=== PATIENT | male | born 1955 | race Caucasian/White ===

== ENCOUNTER → 2018-02-11 | Outpatient (CLI) | payer BC ==
[~2018-02-11] MED LIST: BUSPIRONE HCL5 MG PO; DOXYCYCLINE HY100 MG PO; FLOMAX0.4 MG PO; LEVAQUIN500 MG PO; SERTRALINE HCL50 MG PO
--- NOTE | 2018-02-11 13:47 | Diagnostic Imaging Report ---
PROCEDURE:US RETROPERITONEAL ( KIDNEY ). COMPARISON:Renal ultrasound 06/02/2017, CT abdomen and pelvis 09/14/2016 INDICATIONS:Cyst of Kidney TECHNIQUE: Caraballo-scale and color sonographic images of the bilateral kidneys and bladder where obtained in transverse and longitudinal planes. FINDINGS: RIGHT KIDNEY: 11.7 x 6.6 x 5.7 cm, cortex 1.9 cm Cysts: None Solid masses: None Stones: None Hydronephrosis: Mild, stable to slightly decreased from prior ultrasound. Echogenicity: Normal LEFT KIDNEY: 12.5 x 6.1 x 6.8 cm, cortex 1.9 cm Cysts: Inferior pole 2.5 x 1.9 x 2.7 cm anechoic structure (previously 1.6 x 1.5 x 2 cm). Inferior pole 2.7 x 2 x 3.3 cm anechoic structure with septation (previously 3.3 x 4 x 3.3 cm). Solid masses: None Stones: None Hydronephrosis: Mild, similar to prior ultrasound. Echogenicity: Normal Bladder: Unremarkable Prostate: 3.4 x 2.7 x 4.5 cm (21.8 cc) CONCLUSION: Mild right hydronephrosis, stable to slightly decreased. Anechoic structures in the left renal hilum may represent parapelvic cysts or infundibular/calyceal dilatation in the setting of hydronephrosis. CT urogram may be of benefit. Dictated by: Edis Martin M.D. on 02/11/2018 at 13:52 Electronically approved by: Edis Martin M.D. on 02/11/2018 at 13:52
== END ==
LOC: US 12:33
PROVIDERS: ATTEND Urology
DX: N28.1 Cyst of kidney, acquired (principal)
CPT/HCPCS: 76770